=== PATIENT | female | born 1995 | race Caucasian/White ===

== ENCOUNTER 2017-02-09 10:53 | Emergency (ER) | payer BC ==
[2017-02-09 11:21] VITALS: BP 125/72
--- NOTE | 2017-02-09 11:52 | UC ---
Skin Complaint HPI - HPI Summary HPI Summary: 22 y/o female presents to the [facility] c/o subjective fever and one episode of vomiting since last night. Pt reports she also has a rash in her Rt inner thigh that is painful for the past 3 days . She took Ibuprofen 200mg PO around 0900 this morning. Pain is 4/10 with touch. Pt denies cough, URI, SOB, chest pain, abdominal pain, N/V/D, - History of Current Complaint Chief Complaint: UCGeneralIllness Time Seen by Provider: 02/09/17 11:26 Stated Complaint: FEVER Hx Obtained From: Patient Hx Last Menstrual Period: early january ?: No Onset/Duration: Gradual Onset, Lasting Days - 3 days, Still Present, Worse Since - yesterday Skin Exposure Onset/Duration: Days Ago - 3 days Timing: Constant Onset Severity: Mild Current Severity: Moderate Pain Intensity: 6 Pain Scale Used: 0-10 Numeric Location: Discrete - RT medial thigh Character: Swelling, Redness, Raised, Painful Aggravating Factor(s): Touch Alleviating Factor(s): Nothing Associated Signs & Symptoms: Positive: Vomiting, Fever, Tenderness. Negative: Cough, Chest Pain, Drainage, Red Streaks Related History: Other: - shaving - Allergy/Home Medications Allergies/Adverse Reactions: Allergies Allergy/AdvReac Type Severity Reaction Status Date / Time No Known Allergies Allergy Verified 02/09/17 11:21 Review of Systems Constitutional: Fever Skin: Rash - medial aspect of Rt thigh Eyes: Negative ENT: Negative Respiratory: Negative Cardiovascular: Negative Gastrointestinal: Negative Genitourinary: Negative Motor: Negative Neurovascular: Negative Musculoskeletal: Negative Neurological: Negative Psychological: Negative Is Patient Immunocompromised?: No All Other Systems Reviewed And Are Negative: Yes PMH/Surg Hx/FS Hx/Imm Hx Previously Healthy: Yes - Pt denies PMHX - Surgical History Surgical History: None - Family History Known Family History: Positive: Diabetes - Social History Occupation: Student Lives: With Family Alcohol Use: Occasionally Alcohol Amount: once or twice a month Substance Use Type: None Smoking Status (MU): Never Smoked Tobacco Physical Exam Triage Information Reviewed: Yes Vital Signs: Initial Vital Signs Temp 99.6 F 02/09/17 11:15 Pulse 127 02/09/17 11:15 Resp 16 02/09/17 11:15 BP 125/72 02/09/17 11:15 Pulse Ox 97 02/09/17 11:15 - Additional Comments Vital Signs Reviewed: Yes General: well developed, well nourished female sitting in the examining table w/ o any apparent distress Eye Exam: Normal Eyes: Positive: Conjunctiva Clear - PERRLA, EOMI, fundi grossly normal ENT: Positive: Normal ENT inspection, Hearing grossly normal, Pharynx normal, TMs normal Neck: Positive: Supple, Nontender, No Lymphadenopathy Respiratory: Positive: Chest non-tender, Lungs clear, Normal breath sounds, No respiratory distress Cardiovascular: Positive: RRR, No Murmur, Pulses Normal, Brisk Capillary Refill Abdomen Description: Positive: Nontender, No Organomegaly, Soft. Negative: CVA Tenderness (R), CVA Tenderness (L) Bowel Sounds: Positive: Present Musculoskeletal: Positive: Strength Intact, ROM Intact, No Edema Neurological: Positive: Alert, Muscle Tone Normal Psychological Exam: Normal Skin: Positive: rashes - Positive erythematous patch with indistinct borders in the proximal medial aspect of the Rt thigh about [id number] in size. warm to touch mild induration in the central infected haur follicle, no purulent drainage observed. mild tender to palpation Course/Dx - Course Course Of Treatment: 22 y/o female presents to the [facility] c/o subjective fever and one episode of vomiting since last night. Pt reports she also has a rash in her Rt inner thigh that is painful for the past 3 days . She took Ibuprofen 200mg PO around 0900 this morning. Pain is 4/10 with touch. Pt denies cough, URI, SOB, chest pain, abdominal pain, N/V/D. Hx obtained. Pt with cellulitis of the medail aspect of proximal RT thigh s/p shaving on examiantion. Pt Rx Keflex PO, Ibuprofen PO. rash demarcated with a skin marker and Advised to apply warm compresses. Also if rash doubles in size and if she develops fever to go to the ER for further treatment. Pt understood and agreed with D/C instructions. - Differential Diagnoses - Skin Complaint Differential Diagnoses: Abscess, Cellulitis, Contact Dermatitis, Lymphadenitis, Tick Born Illness, Urticaria, Other - insect bite,folliculitis - Diagnoses Provider Diagnoses: 1- cellulitis of the medial aspect or Rt thigh Discharge - Discharge Plan Condition: Stable Disposition: HOME Prescriptions: Cephalexin CAP* [Keflex CAP*] 500 mg PO QID #28 cap Ibuprofen TAB* [Motrin TAB* 800 MG] 800 mg PO Q6H PRN #20 tab PRN Reason: Fever Patient Education Materials: Cellulitis (ED) Referrals: [facility] [Outside] - 3 Days Additional Instructions: 1-Please take full course of Antibiotic to avoid resistance. 2- If redness and swelling doubles in size beyond what was demarcated after 48 hrs of taking antibiotic and fever develops please go to the ER immediately. 3-Avoid standing for long periods of time or flexing your hip, keep it elevated and keep wound clean and dry. apply warm compresses around affected area as indicated 4-Please F/u with your PCP in 3 days if not improvement for further evaluation and treatment.
== END 2017-02-09 12:01 | disposition home or self-care (01) ==
LOC: UCEAST 10:53
DX: L03.115 Cellulitis of right lower limb (principal); R50.9 Fever, unspecified; R11.10 Vomiting, unspecified
CPT/HCPCS: 99201; G0463

== ENCOUNTER 2017-02-12 12:02 | Day surgery (SDC) | payer BC ==
[2017-02-12 12:46] LABS: ABS Basophils 0 10^3/ul (0-0.2); ABS Eosinophils 0.1 10^3/ul (0-0.6); ABS Lymphocytes 1.4 10^3/ul (1.0-4.8); ABS Monocytes 0.8 10^3/ul (0-0.8); ABS Neutrophils 8.3 10^3/ul (1.5-7.7); ABS Nucleated RBC 0.02 10^3/ul; Eosinophil % 0.7 % (0-6); Hematocrit 37 % (35-47); Hemoglobin 12.5 g/dl (12.0-16.0); Mean Corpuscular HGB Conc 34 g/dl (31-36); Mean Corpuscular Hemoglobin 29 pg (27-31); Mean Corpuscular Volume 85 fL (80-97); Mean Platelet Volume 7 um3 (7.4-10.4); Nucleated Red Blood Cells % 0.2; Platelet Count 232 10^3/ul (150-450); Red Blood Count 4.33 10^6/ul (4.0-5.4); Red Cell Distribution Width 13 % (10.5-15); White Blood Count 10.7 10^3/ul (3.5-10.8)
[2017-02-12 13:05] LABS: EGFR Non-African American 123.8 (>60)
--- NOTE | 2017-02-12 13:22 | RAD ---
HISTORY: Right groin swelling COMPARISONS: None TECHNIQUE: Multiple transverse and longitudinal centimeters were obtained of the right groin in the area of pain and palpable abnormality using grayscale and color Doppler imaging FINDINGS: There is a complex loculated fluid collection along the medial proximal thigh in the area of clinical abnormality measuring approximately 2.3 x 2.2 x 8.9 cm in size. IMPRESSION: LOCULATED FLUID COLLECTION IN THE AREA OF CLINICAL ABNORMALITY MEASURING UP TO 8.9 CM, CONCERNING FOR ABSCESS
[2017-02-12] MEDS ORDERED: Buffered Lidocaine 0.9% SYRIN* 5 ML/SYR SYRINGE INTRADERM ONE (17:16)
[2017-02-12] MEDS ORDERED: Dexamethasone IV* 4 MG/ML 1 ML (4 MG) IV SLOW PU ONE (17:16)
[2017-02-12] MEDS ORDERED: Famotidine IV* 10 MG/ML 2 ML (20 mg) IV ONE (17:16)
[2017-02-12] MEDS ORDERED: Scopolamine 1.5 mg* PATCH TRANSDERM PRN (17:17)
[2017-02-12] MEDS ORDERED: DiMENhydriNATE IV* 50 MG/ML VIAL IV PUSH PRN (17:17)
[2017-02-12] MEDS ORDERED: fentaNYL* 50 MCG/ML 2 ML VIAL (100 MCG VIAL) IV PRN (17:17)
[2017-02-12] MEDS ORDERED: Ondansetron INJ* 2 MG/ML VIAL IV PRN (17:17)
[2017-02-12] MEDS ORDERED: oxyCODONE/Acetamin 5/325 MG* TAB PO PRN (17:17)
[2017-02-12] MEDS ORDERED: Ondansetron INJ* 2 MG/ML VIAL ONE (17:26)
[2017-02-12] MEDS ORDERED: Midazolam* 1 MG/ML 2 ML VIAL (2 MG) ONE (17:26)
[2017-02-12] MEDS ORDERED: Propofol* 10 MG/ML 20 ML BTL IV PUSH ONE (17:26)
[2017-02-12] MEDS ORDERED: Ketorolac INJ* 30 MG/ML 1 ML VIAL ONE (17:26)
[2017-02-12] MEDS ORDERED: fentaNYL* 50 MCG/ML 5 ML VIAL (250 MCG VIAL) ONE (17:26)
[2017-02-12] MEDS ORDERED: Dexamethasone IV* 4 MG/ML 1 ML (4 MG) ONE (17:43)
[2017-02-12] MEDS ORDERED: Famotidine IV* 10 MG/ML 2 ML (20 mg) ONE (17:43)
[2017-02-12] MEDS ORDERED: ceFAZolin 2 GM PREMIX (*) 2 GM/50 ML BAG IVPB ONE (18:04)
[2017-02-12] MEDS ORDERED: Bupivacaine 0.5% SDV PF* 10-30ML VIAL ONE (18:27)
--- NOTE | 2017-02-12 18:45 | SURGPN ---
Brief Operative Note - Surgery Procedures: Pre-OP Diagnoses: R groin abscess Post-op Diagnosis: same Procedure: Incision and drainage of right groin abscess Surgeon: Chong Asst: none Anethesia: GA with LMA Dr Saravia EBL: minimal IVF: crystalloid Specimen: abscess fluid for culture Drains: wound packed and left open
[2017-02-12 19:38] VITALS: BP 120/74
--- NOTE | 2017-02-13 00:55 | OP ---
CC: [facility] * DATE OF OPERATION: 02/12/17 - [facility] DATE OF : [birth year] SURGEON: Ulices Schwarz MD MECHANIC'S ASSISTANT: None. ANESTHESIOLOGIST: Dr. Kevin Beltre. ANESTHESIA: General anesthesia with LMA. PRE-OP DIAGNOSIS: Right groin abscess. POST-OP DIAGNOSIS: Right groin abscess. OPERATIVE PROCEDURE: Incision and drainage of right groin abscess. Fluid removed and culture sent. Wound packed. INDICATIONS: Ms. Blancas is a 22-year-old female who presented to the emergency room with complaints of a 4-day history of swelling and pain at the right groin. The patient had been started on antibiotics and followed through the [facility], she had worsened and was sent for evaluation for her cellulitis. She had been placed on Keflex. The patient herself felt somewhat better despite the worsening swelling. She denied any fevers or chills in the past few days, but early on in her course she said she did. I saw her in the emergency room where she had undergone an ultrasound, which showed a large fluid collection above the muscle in the right groin. This did not appear to extend towards any additional structures. The patient stated that this has never happened to her before. She denies any shaving at the area. No recent trauma. PAST MEDICAL HISTORY: None. PAST SURGICAL HISTORY: None. MEDICATIONS: None. ALLERGIES: No known drug allergies. SOCIAL HISTORY: She does not smoke. She is a senior at . REVIEW OF SYSTEMS: No fevers, no chills, no shortness of breath or chest pain. No complaints with bowel movement. No complaints with urination. PHYSICAL EXAMINATION: Well-appearing, in no apparent distress, afebrile earlier in the emergency room, but did spike to 101.3 later on. She had focal cellulitis and fluctuance at the right groin. This did not extend towards the labia or towards the anus. It is minimally tender to touch. It had been marked previously and the lawrence showed deep red within the lawrence but not extending beyond it. Ultrasound reviewed. DESCRIPTION OF PROCEDURE: I agree with the presentation of an abscess given the cellulitis and the fluid collection findings as well as physical exam and I recommended incision and drainage. I outlined the details of the procedure going over the risks, benefits, and alternatives to the patient and she agreed to proceed. We spoke about the possible complications which included but not limited to need for packing changes, the possibility of return trip to the operating room. The patient signed consent. She was marked, brought to the operating room, and placed on the operating room table in a supine position. General anesthesia was induced. The patient's right leg was placed in a frog leg position and it was prepped and draped in the standard surgical fashion and a time-out was performed. She had received preoperative antibiotics. Over the most fluctuant area, an incision was made. Copious dark foul-smelling pus was encountered. This was drained. Culture was taken both aerobic and anaerobic and we copiously irrigated the wound after breaking up loculations with suction engineering production worker and with fingers. The defect extended approximately 10 cm in all its entirety by 4 x 3 cm. We had exposed fascia of the leg muscles in our area. They bled well and did not show any bogginess below these structures. We then placed a 0.5 inch iodoform packing into the defect followed by gauze. The patient was woken up and transferred to the PACU in stable condition. [id number]/[facility] #: [id number] JOSELYN
[2017-02-15] MEDS ORDERED: Scopolamine PATCH Remove* 1 NOTE MISC PATCH OFF ONE (23:59)
--- NOTE | 2017-03-13 22:54 | ED ---
Adolph Valadez Nilda, scribed for Donald Linares MD on 02/12/17 at 1229 . Skin Complaint - HPI Summary HPI Summary: This patient is a 22 year old F presenting to [facility] with a chief complaint of constant painful rash on right inner thigh that began 3 days ago. Pt visited [facility] during onset of symptoms and was diagnosed with cellulitis infection. Pt was prescribed Keflex, which she has been taking for the past 3 days with no relief of symptoms. The patient rates the pain 7/10 in severity. Symptoms aggravated by palpation and alleviated by nothing. Patient reports fever and chills (3 days ago, resolved). Patient denies drainage from rash. Pt states she has not had a similar previous episode and that she is not on daily medications. - History of Current Complaint Chief Complaint: EDRashSkinAbscess Stated Complaint: RT THIGH COMPLAINT/POSS INFECTION Hx Obtained From: Patient Hx Last Menstrual Period: early january Onset/Duration: Started Days Ago, Still Present Skin Exposure Onset/Duration: Days Ago Timing: Constant Current Severity: Severe Pain Intensity: 7 Pain Scale Used: 0-10 Numeric Skin Location: Leg Character: Redness, Painful Aggravating Symptom(s): Touch Alleviating Symptom(s): Nothing Associated Signs & Symptoms: Fever, Chills, Rash - Allergy/Home Medications Allergies/Adverse Reactions: Allergies Allergy/AdvReac Type Severity Reaction Status Date / Time No Known Allergies Allergy Verified 02/09/17 11:21 PMH/Surg Hx/FS Hx/Imm Hx Sensory History: Reports: Hx Contacts or Glasses Opthamlomology History: Reports: Hx Contacts or Glasses EENT History: Denies: Hx Deafness Infectious Disease History: No Infectious Disease History: Denies: Traveled Outside the [place] in Last 30 Days - Family History Known Family History: Positive: Diabetes Negative: Hypertension - Social History Occupation: Student Alcohol Use: Occasionally Alcohol Amount: once or twice a month Substance Use Type: Reports: None Smoking Status (MU): Never Smoked Tobacco Review of Systems Positive: Fever - resolved, Chills - resolved Positive: Rash All Other Systems Reviewed And Are Negative: Yes Physical Exam - Summary Physical Exam Summary: Appearance: Well-appearing, Well-nourished Skin: Warm, Dry, 7cm x 12 cm erythematous, tender region in upper inner thigh with woody induration, no obvious abscess, no obvious break in skin. Eyes: Normal, PERRL, EOMI, sclera anicteric ENT: Normal Neck: Supple, nontender Respiratory: Clear to auscultation Cardiovascular: S1, S2, no murmur, no rub, no gallop Abdomen: Soft, nontender, no organomegaly Bowel sounds: Present Musculoskeletal: Normal, Strength/ROM Intact, no edema, pulses symmetrical Neurological: Normal, A&Ox3, cranial nerves II-XII WNL, follows commands, gait not tested, sensation intact to pin and light touch Psychiatric: affect normal, behavior appropriate, dressed appropriately, judgment intact Triage Information Reviewed: Yes Vital Signs On Initial Exam: Initial Vitals Temp Pulse Resp BP Pulse Ox 98.0 F 97 16 138/81 98 02/12/17 12:10 02/12/17 12:10 02/12/17 12:10 02/12/17 12:10 02/12/17 12:10 Vital Signs Reviewed: Yes Diagnostics - Vital Signs Vital Signs Temp Pulse Resp BP Pulse Ox 02/12/17 12:10 98.0 F 97 16 138/81 98 - Laboratory Result Diagrams: 02/12/17 12:36 02/12/17 12:36 Lab Statement: Any lab studies that have been ordered have been reviewed, and results considered in the medical decision making process. - Additional Comments Diagnostic Additional Comments: US soft tissue, per radiologist, reveals loculated fluid collection in the area of clinical abnormality measuring up to 8.9 cm, concerning for abscess. ED physician has reviewed this radiology report and agrees. Re-Evaluation - Re-Evaluation First Eval Re-Evaluation Time: 13:39 Comment: Reviewed labs and imaging. Course/Dx - Course Assessment/Plan: This patient is a 22 year old F presenting to [facility] with a chief complaint of constant painful rash on right inner thigh that began 3 days ago. Pt visited [facility] during onset of symptoms and was diagnosed with cellulitis infection. Pt was prescribed Keflex, which she has been taking for the past 3 days with no relief of symptoms. The patient rates the pain 7/10 in severity. Symptoms aggravated by palpation and alleviated by nothing. Patient reports fever and chills (3 days ago, resolved). Patient denies drainage from rash. Pt states she has not had a similar previous episode and that she is not on daily medications. Pending labs and US. US soft tissue, per radiologist, reveals loculated fluid collection in the area of clinical abnormality measuring up to 8.9 cm, concerning for abscess. ED physician has reviewed this radiology report and agrees. [1338] Dr. Schwarz (surgery) agrees to take pt to OR for incision and drainage of abscess. [1640] Dr. Schwarz (surgery) visited pt in ED. Asked for IV and will take to OR for same day surgery. Pt is stable and will be admitted [place] [facility] [place] same [place] surgery for incision and drainage of abscess. Dx abscess of right groin. Pt understands and is agreeable to this plan. - Diagnoses Provider Diagnoses: Abscess of right groin - Physician Notifications Discussed Care Of Patient With: Ulices Schwarz - Surgery Time Discussed With Above Provider: 13:38 Instructed by Provider To: Other - agrees to take pt to OR for incision and drainage of abscess. Discharge - Discharge Plan Condition: Stable Disposition: ADMITTED TO [facility] Discharge Disposition Comment: same day surgery for incision and drainage Prescriptions: oxyCODONE/Acetamin 5/325 MG* [Percocet 5/325 TAB*] 1 tab PO Q4H PRN #10 tab MDD 6 PRN Reason: Pain Referrals: No Primary Care Phys,NOPCP [Primary Care Provider] - The documentation as recorded by the Adolph pan Nilda accurately reflects the service I personally performed and the decisions made by me, Donald Linares MD.
== END 2017-02-12 20:01 | disposition home or self-care (01) ==
LOC: ED 12:02 → OR 18:19
PROVIDERS: ATTEND Surgery
DX: L02.214 Cutaneous abscess of groin (principal); R50.9 Fever, unspecified
CPT/HCPCS: 36415; 80053; 81025; 85025; 87070; 87073; 87205; 96374; 96375; 99283; J0690; J1100; J1885; J2250; J2405; J2704; J3010